=== PATIENT | female | born 1965 | race Caucasian/White ===

== ENCOUNTER 2021-09-26 00:10 | Inpatient (IN) | payer OTHER ==
[2021-09-26] MEDS ORDERED: ACETAMINOPHEN 1000 MG/100 ML BAG IVPB ONE (01:08)
[2021-09-26] MEDS ORDERED: KETOROLAC TROMETHAMINE 30 MG/1 ML VIAL IVPUSH ONE (01:08)
[2021-09-26] MEDS ORDERED: ACETAMINOPHEN INJECTION 100 ML IVPB ONE (01:56)
[2021-09-26] MEDS ORDERED: KETOROLAC TROMETHAMINE 15 MG/ML VIAL ONE (01:57)
[2021-09-26 04:11] LABS: BASO % 0.4 % (0-2.0); EOS % 2.4 % (0-4.5); HEMATOCRIT 31.5 % (32.4-45.2); LYMPH % 13.2 % (8-40); MCH 33.8 pg (25.7-33.7); MCHC 34.8 g/dl (32.0-36.0); MEAN PLT VOLUME 6.6 fl (7.5-11.1); MONO % 11.4 % (3.8-10.2); NEUT % 72.6 % (42.8-82.8); PLATELET COUNT 246 10^3/uL (134-434); RBC 3.24 M/mm3 (3.60-5.2); RDW 17.2 % (11.6-15.6); WHITE BLOOD COUNT 5.7 K/mm3 (4.0-10.0)
[2021-09-26 04:37] LABS: ALBUMIN 3.9 g/dl (3.4-5.0); CALCIUM 9.1 mg/dL (8.5-10.1); MAGNESIUM 1.6 mg/dL (1.8-2.4)
[2021-09-26 04:40] LABS: CREATININE 0.7 mg/dL (0.55-1.3)
[2021-09-26 04:42] LABS: BILIRUBIN,TOTAL 0.7 mg/dL (0.2-1); TOT PROT 7.7 g/dl (6.4-8.2)
[2021-09-26 04:44] LABS: INR 1.02 (0.83-1.09); PROTHROMBIN TIME (PATIENT) 11.7 SEC (9.7-13.0)
[2021-09-26 04:47] LABS: ACTIVATED PTT 29.4 SECONDS (25.2-36.5)
[2021-09-26] MEDS ORDERED: LIDOCAINE 5% TOPICAL PATCH TP ONE (06:46)
[2021-09-26] MEDS ORDERED: LIDOCAINE 5% TOPICAL PATCH ONE (06:47)
[2021-09-26] MEDS ORDERED: DOCUSATE SODIUM 100 MG CAPSULE (FP) PO PRN (12:42)
[2021-09-26] MEDS ORDERED: MAGNESIUM SULF 50% (8.12 MEQ/2 ML-1 GM VIAL) IVPB ONE (12:57)
[2021-09-26] MEDS ORDERED: MAGNESIUM 1GM/D5W - 1 GM/100 ML IVPB IVPB ONE (13:09)
[2021-09-26] MEDS ORDERED: oxyCODONE HCL 5 MG TABLET ONE (13:14)
[2021-09-26] MEDS ORDERED: DOCUSATE SODIUM 100 MG CAPSULE (FP) PO ONE (13:15)
[2021-09-26] MEDS: oxyCODONE HCL 5 MG TABLET PO PRN ×2 (13:19→18:33)
[2021-09-26 18:11] VITALS: BMI 31.5
[2021-09-26] MEDS ORDERED: AMPICILLIN NA/SULBACTAM NA 3 GM VIAL ONE (20:51)
[2021-09-26] MEDS ORDERED: SODIUM CHLORIDE 100 ML IVPB ONE (20:52)
[2021-09-26] MEDS ORDERED: LIDOCAINE PATCH REMOVAL MC ONE (22:00)
[2021-09-26] MEDS: AMPICILLIN NA/SULBACTAM NA 3 GM in SODIUM CHLORIDE 100 ML IVPB SCH (22:06)
[2021-09-27] MEDS ORDERED: SODIUM CHLORIDE 100 ML IVPB ONE ×4 (01:44→14:18)
[2021-09-27] MEDS ORDERED: AMPICILLIN NA/SULBACTAM NA 3 GM VIAL ONE ×3 (01:44→13:09)
[2021-09-27] MEDS: AMPICILLIN NA/SULBACTAM NA 3 GM in SODIUM CHLORIDE 100 ML IVPB SCH ×2 (03:00→08:31)
[2021-09-27 08:56] LABS: MCH 33.9 pg (25.7-33.7); MCHC 35.4 g/dl (32.0-36.0); MEAN CELL VOLUME 95.9 fl (80-96); MEAN PLT VOLUME 6.8 fl (7.5-11.1); PLATELET COUNT 247 10^3/uL (134-434); RBC 3.24 M/mm3 (3.60-5.2); RDW 16.5 % (11.6-15.6); WHITE BLOOD COUNT 6.7 K/mm3 (4.0-10.0)
[2021-09-27 09:09] LABS: BLOOD UREA NITROGEN 10.9 mg/dL (7-18); CALCIUM 9.1 mg/dL (8.5-10.1); MAGNESIUM 1.8 mg/dL (1.8-2.4)
[2021-09-27 09:13] LABS: CREATININE 0.6 mg/dL (0.55-1.3); PHOSPHOROUS 4.1 mg/dL (2.5-4.9)
[2021-09-27] MEDS: amLODIPine BESYLATE 5 MG TABLET (FP) PO SCH (14:06)
[2021-09-27] MEDS: AMPICILLIN NA/SULBACTAM NA 1.5 GM in SODIUM CHLORIDE 100 ML IVPB SCH ×2 (14:16→21:55)
[2021-09-27] MEDS ORDERED: AMPICILLIN NA/SULBACTAM NA 1.5 GM VIAL ONE (14:17)
[2021-09-27] MEDS: oxyCODONE HCL 5 MG TABLET PO PRN (22:56)
[2021-09-28] MEDS: AMPICILLIN NA/SULBACTAM NA 1.5 GM in SODIUM CHLORIDE 100 ML IVPB SCH ×2 (03:22→10:02)
[2021-09-28] MEDS: oxyCODONE HCL 5 MG TABLET PO PRN ×2 (03:37→21:14)
[2021-09-28 08:21] LABS: BASO % 0.1 % (0-2.0); EOS % 0.3 % (0-4.5); HEMATOCRIT 37.2 % (32.4-45.2); LYMPH % 7.3 % (8-40); MCH 33.4 pg (25.7-33.7); MEAN CELL VOLUME 95.5 fl (80-96); MEAN PLT VOLUME 6.7 fl (7.5-11.1); NEUT % 85.3 % (42.8-82.8); PLATELET COUNT 273 10^3/uL (134-434); RDW 17.1 % (11.6-15.6); WHITE BLOOD COUNT 6.4 K/mm3 (4.0-10.0)
[2021-09-28 08:47] LABS: BLOOD UREA NITROGEN 12.3 mg/dL (7-18); CALCIUM 9.3 mg/dL (8.5-10.1)
[2021-09-28 08:51] LABS: CREATININE 0.6 mg/dL (0.55-1.3)
[2021-09-28] MEDS ORDERED: AMPICILLIN NA/SULBACTAM NA 1.5 GM VIAL ONE (10:00)
[2021-09-28] MEDS ORDERED: SODIUM CHLORIDE 100 ML IVPB ONE (10:01)
[2021-09-28] MEDS: ASPIRIN 81 MG CHEWABLE TABLETS PO SCH (10:02)
[2021-09-28] MEDS: amLODIPine BESYLATE 5 MG TABLET (FP) PO SCH (10:02)
[2021-09-28] MEDS ORDERED: DEXAMETHASONE SOD PHOSPHATE 4 MG/1 ML VIAL IVPUSH ONE (14:55)
[2021-09-28] MEDS: GABAPENTIN 100 MG CAPSULE PO SCH (21:14)
[2021-09-28] MEDS: DEXAMETHASONE SOD PHOSPHATE 4 MG/1 ML VIAL IVPUSH SCH (21:28)
[2021-09-29] MEDS: DEXAMETHASONE SOD PHOSPHATE 4 MG/1 ML VIAL IVPUSH SCH (02:14)
[2021-09-29] MEDS: GABAPENTIN 100 MG CAPSULE PO SCH (06:23)
[2021-09-29] MEDS: DEXAMETHASONE SOD PHOSPHATE 4 MG/1 ML VIAL IVPB SCH ×3 (06:23→17:20)
[2021-09-29 07:43] LABS: BASO % 0.1 % (0-2.0); HEMATOCRIT 38.1 % (32.4-45.2); HEMOGLOBIN 13.4 GM/dL (10.7-15.3); LYMPH % 5.5 % (8-40); MCH 33.8 pg (25.7-33.7); MCHC 35.2 g/dl (32.0-36.0); MEAN CELL VOLUME 96.1 fl (80-96); MEAN PLT VOLUME 6.8 fl (7.5-11.1); MONO % 2.2 % (3.8-10.2); NEUT % 92.2 % (42.8-82.8); PLATELET COUNT 328 10^3/uL (134-434); RBC 3.97 M/mm3 (3.60-5.2); RDW 17.4 % (11.6-15.6); WHITE BLOOD COUNT 7.7 K/mm3 (4.0-10.0)
[2021-09-29 07:57] LABS: BLOOD UREA NITROGEN 23.2 mg/dL (7-18); CALCIUM 9.9 mg/dL (8.5-10.1)
[2021-09-29 08:01] LABS: CREATININE 0.6 mg/dL (0.55-1.3)
[2021-09-29 09:47] LABS: ANISOCYTOSIS 0; HELMET CELLS 0; HOWELL-JOLLY BODIES 0; MACROCYTOSIS 0; OVALOCYTE 0; ROULEAU 0; SICKELED CELLS 0; TARGET CELLS 0; TEAR DROP CELLS 0; TOXIC GRANULATION 0
[2021-09-29] MEDS: amLODIPine BESYLATE 5 MG TABLET (FP) PO SCH (10:14)
[2021-09-29] MEDS: ASPIRIN 81 MG CHEWABLE TABLETS PO SCH (10:14)
[2021-09-29] MEDS ORDERED: GABAPENTIN 100 MG CAPSULE PO SCH (13:16)
[2021-09-29 15:28] VITALS: BP 141/98; PULSE 94; TEMP 98.5
== END 2021-09-29 18:00 | disposition short-term general hospital (02) | DRG 56 ==
LOC: JER 00:10 → JERBED 10:48 → J4W 15:40 → OBSVTOIN 09-28 09:51
PROVIDERS: ADMIT Internal Medicine; ATTEND Internal Medicine
DX: G95.0 Syringomyelia and syringobulbia (principal); G93.5 Compression of brain; D68.9 Coagulation defect, unspecified; M54.12 Radiculopathy, cervical region; I10 Essential (primary) hypertension; K21.9 Gastro-esophageal reflux disease without esophagitis; C50.912 Malignant neoplasm of unspecified site of left female breast
CPT/HCPCS: 36415; 70450-TC; 71046-TC-FY; 71275-TC; 72156-TC; 73030-TC-LT-FY; 80048; 80053; 83735; 84100; 84484; 85025; 85027; 85379; 85610; 85730; 87040; 93005; 93010; 93971; 99285-25; C1887; C9803-CS; G0378; Q9967; U0003; U0005